=== PATIENT | female | born 1970 | race African-American/Black ===

== ENCOUNTER 2019-06-07 13:42 | Outpatient (CLI) | payer OTHER ==
--- NOTE | 2019-06-07 14:05 | RAD ---
PA AND LATERAL CHEST: HISTORY: Disability evaluation. COMPARISON: 07/27/2017 FINDINGS: Heart size is borderline but stable. Lungs are well expanded without focal areas of consolidation, pn eumothoraces or pleural effusions, borderline normal but stable. No focal areas of consolidation, pne umothoraces, kendra pulmonary edema or pleural effusions are seen. There are degenerative changes of t he spine. IMPRESSION: Stable examination. No acute process. POS: OFF
--- NOTE | 2019-06-07 14:05 | RAD ---
LEFT KNEE TWO VIEWS: HISTORY: Disability evaluation. Left knee pain. FINDINGS: Degenerative changes are seen. No fracture, dislocation or bony destruction is identified. POS: OFF
--- NOTE | 2019-06-07 14:16 | RAD ---
RADIOGRAPH LUMBAR SPINE 3 VIEWS: DATE: 06/07/2019 HISTORY: 48-year-old female with chronic low back pain FINDINGS: 5 lumbar-type vertebrae. Vertebral body heights are maintained. Alignment is normal. Mild disc space narrowing at L5-S1. Rest of the disc spaces are maintained. Bilateral facet DJD at L4-5 and L5-S1. IMPRESSION: Lumbar spondylosis consisting of lower level facet osteoarthrosis.
== END 2019-06-07 13:43 | disposition home or self-care (01) ==
LOC: NAV RAD 13:42
PROVIDERS: ATTEND Family Medicine
DX: Z02.71 Encounter for disability determination (principal); M15.9 Polyosteoarthritis, unspecified; M47.816 Spondylosis without myelopathy or radiculopathy, lumbar region
CPT/HCPCS: 71046; 72100